=== PATIENT | female | born 1955 | race Caucasian/White ===

== ENCOUNTER 2018-09-20 18:15 | Emergency (ER) | END 2018-09-21 01:02 | disposition home or self-care (01) ==

== ENCOUNTER 2018-12-11 14:30 | Emergency (ER) | payer OTHER ==
[~2018-12-11] VITALS: Ht 157.5 cm; Wt 63.7 kg
[~2018-12-11 14:30] MED LIST: ASCO500C7 PO; CALC-143 PO; CYAN100080 PO; CYCL10TA7 PO; FAMO20TA18 PO; IBUP800T48 PO; MULTI PO; VITA400C15 PO
[2018-12-11 14:34] VITALS: BP 119/63; PULSE 94; RESP 20; Ht 157.5 cm; Wt 63.7 kg
--- NOTE | 2018-12-11 16:18 | ERD ---
ER Documentation Chief Complaint Chief Complaint c/o lower back pain x4 days HPI 63-year-old female, presents to the emergency department, complaining of worsening of lower back pain for 4 days. No recent history of trauma, no fever, no chills, no urinary symptoms. The pain is sharp, bilateral, worse in bilateral rotation and flexion. The patient has been taking ibuprofen with mild improvement of the symptoms. She denies distal weakness, numbness or tingling. ROS All systems reviewed and are negative except as per history of present illness. Medications Home Meds Active Scripts Acetaminophen* (Tylenol*) 325 Mg Tablet, 2 TAB PO Q8 PRN for PAIN AND OR ELEVATED TEMP, #20 TAB Prov:DEDRICK LUNA MD 12/11/18 Ibuprofen* (Motrin*) 400 Mg Tab, 400 MG PO Q8, #20 TAB Prov:DEDRICK LUNA MD 12/11/18 Baclofen* (Baclofen*) 10 Mg Tablet, 10 MG PO TID PRN for MUSCLE SPASMS, #15 Prov:DEDRICK LUNA MD 12/11/18 Cyclobenzaprine Hcl* (Cyclobenzaprine Hcl*) 10 Mg Tablet, 10 MG PO TID, #10 TAB Prov:CHEMO RAINES MD 09/20/18 Ibuprofen* (Motrin*) 800 Mg Tab, 800 MG PO Q6H PRN for PAIN AND OR ELEVATED TEMP, #30 TAB Prov:CHEMO RAINES MD 09/20/18 Reported Medications Cyanocobalamin* (Vitamin B-12*) 1,000 Mcg Tablet.sa, 1000 MCG PO DAILY, TAB 09/20/18 Calcium Citrate/Vitamin D (Citracal-Vitamin D 200 MG-250) 1 Each Tablet, 1 EACH PO BID, TAB 09/20/18 Vitamin E* (Vitamin E*) 400 Unit Capsule, 400 UNIT PO DAILY, CAP 09/20/18 Ascorbic Acid* (Vitamin C*) 500 Mg Capsule.sa, 500 MG PO DAILY, CAP 09/20/18 Multivitamins* (Theragran*) 1 Tab Tab, 1 TAB PO DAILY, TAB 09/20/18 Famotidine* (Famotidine*) 20 Mg Tablet, 20 MG PO DAILY, #30 TAB 09/20/18 Allergies Allergies: Coded Allergies: No Known Allergy (Unverified , 09/20/18) PMhx/Soc Hx Alcohol Use: No Hx Substance Use: No Hx Tobacco Use: No FmHx Family History: No diabetes, No coronary disease Physical Exam Vitals Vital Signs Date Temp Pulse Resp B/P (MAP) Pulse Ox O2 O2 Flow FiO2 Time Delivery Rate 12/11/18 97.8 94 20 119/63 97 14:34 (81) Physical Exam Const: No acute distress Head: Atraumatic Eyes: Normal Conjunctiva ENT: Normal External Ears, Nose and Mouth. Neck: Full range of motion. No meningismus. Resp: Clear to auscultation bilaterally Cardio: Regular rate and rhythm, no murmurs Abd: Soft, non tender, non distended. Normal bowel sounds Skin: No petechiae or rashes Back: Normal inspection, no vertebral tenderness, bilateral lumbar muscle spasm. Decreased range of motion for lateral rotation due to pain. Ext: No cyanosis, or edema Neur: Awake and alert Psych: Normal Mood and Affect Results 24 hrs Laboratory Tests Test 12/11/18 16:50 Bedside Urine pH (LAB) 5.5 Bedside Urine Protein (LAB) Trace Bedside Urine Glucose (UA) Negative Bedside Urine Ketones (LAB) Trace Bedside Urine Blood Negative Bedside Urine Nitrite (LAB) Negative Bedside Urine Leukocyte Esterase (L 1+ Current Medications Medications Dose Sig/Dinorah Start Time Status Last (Trade) Ordered Route PRN Stop Time Admin Dose Reason Admin Ketorolac 30 mg ONCE STAT 12/11/18 DC 12/11/18 Tromethamine IM 16:35 16:46 (Toradol) 12/11/18 16:38 Procedures/MDM Differential diagnosis include but not limited to: lumbar sprain/strain, sciatica, herniated disk, UTI less likely pyelo, kidney stone. Neurovascular exam grossly intact. no clinical findings suggestive of acute infectious process, no acute deformity, no edema, no rashes. Physical examination and clinical presentation consistent most likely with acute back pain, likely secondary to a muscle strain. During the ED course the patient received treatment with Toradol IM presenting overall improvement of the symptoms. Results and clinical impression discussed with the patient who agrees with management. The patient is stable to be treated outpatient and will be discharged home with recommendations and close monitoring The patient was instructed to follow up with the primary care provider in the next 48h. If symptoms persist, worsen or new symptoms develop, then patient should return to the ED immediately. Instructions explained and given to patient with acknowledgment and demonstrated understanding. Disclaimer: Inadvertent spelling and grammatical errors are likely due to EHR/dictation software use and do not reflect on the overall quality of patient care. Also, please note that the electronic time recorded on this note does not necessarily reflect the actual time of the patient encounter. Departure Diagnosis: Primary Impression: Lumbar strain Condition: Stable Patient Instructions: Back Pain (Acute Or Chronic) Additional Instructions: Muchas beverly por [facility] para vásquez servicio. Esperamos que en vásquez visita a la heather de emergencia vásquez problema medico haya sido solucionado y que se sienta mucho mejor. Para estar seguros que vásquez mejoria sigue en proceso, le pedimos el favor de hacer mk zully de seguimiento medico con vásquez doctor primario en los proximos 2-4 viveros. Lleve con usted estos documentos y las medicinas recetadas. Si rajwinder sintomas empeoran, NO SE ESPERE, por favor regrese a heather de emergencia INMEDIATAMENTE. En antoinette que usted no tenga un mdico de atencin primaria: Llame al mdico o clnica comunitaria de referencia que aparece abajo martha las horas de consultorio para hacer km zully para que le vean. CLINICAS: [facility] [phone] [facility] [phone] [facility] [phone] [facility] [phone] [facility] [phone] [facility] [phone] MD Dec 11, 2018 16:18
[2018-12-11] MEDS ORDERED: KETOROLAC 30 MG INJ IM STA (16:35)
[2018-12-11] MEDS ORDERED: BACL10TA PO (17:08)
[2018-12-11] MEDS ORDERED: ACET325T33 PO (17:08)
[2018-12-11] MEDS ORDERED: IBUP-1561 PO (17:08)
== END 2018-12-11 17:25 | disposition home or self-care (01) ==
LOC: FTE 14:30
DX: S39.012A Strain of muscle, fascia and tendon of lower back, initial encounter (principal); X58.XXXA Exposure to other specified factors, initial encounter; Y92.9 Unspecified place or not applicable
CPT/HCPCS: 81003; 96372; J1885; Z7502